=== PATIENT | female | born 1955 | race American Indian/Alaskan Native ===

== ENCOUNTER 2018-02-25 17:45 | Emergency (ER) | payer OTHER ==
[~2018-02-25] VITALS: Ht 152.4 cm; Wt 59.0 kg
[2018-02-25] MEDS ORDERED: TRAM50TA2 PO (18:14)
--- NOTE | 2018-02-25 18:29 | NUR ---
Patient left without being seen by ER physician.
[2018-03-14] MEDS ORDERED: ALPR1TAB7 PO (14:24)
[2018-03-14] MEDS ORDERED: QUET400T PO (14:24)
[2018-03-14] MEDS ORDERED: FLUO20CA36 PO (14:24)
== END 2018-02-25 18:34 | disposition home or self-care (01) ==
LOC: ER 17:49
DX: Z53.21 Procedure and treatment not carried out due to patient leaving prior to being seen by health care provider (principal)
CPT/HCPCS: A4663